=== PATIENT | male | born 1995 | race Caucasian/White ===

== ENCOUNTER 2016-08-28 14:11 | Emergency (ER) | payer SELFPAY ==
[2016-08-28 14:29] VITALS: BP 136/72
--- NOTE | 2016-08-28 18:59 | Emergency Department Report ---
HPI - General Chief Complaint: Sore Throat Time Seen by Provider: 08/28/16 18:35 - HPI HPI: The patient is a 21-year-old male presents for evaluation of palpitations. The patient states that at 1 AM this morning he developed constant severe racing and throbbing quality pain of the chest/heart, lasting for hours, improved with rest. He states that his symptoms began after experiencing the sensation of food being stuck in his throat. He states that this sensation began after eating chicken at approximately midnight. His throat fullness completely resolved upon awakening this a.m., greater than 8 hours prior to my evaluation. The patient denies fever, painful swallowing, difficulty swallowing, difficulty tolerating secretions, stridor, dyspnea, cough, hemoptysis, dizziness , syncope, unilateral leg swelling, calf muscle pain, cocaine or other stimulant use, history of DVT or PE, recent immobilization, congenital heart disease, or family history of sudden cardiac . ED Past Medical Hx - Past Medical History Previous Medical History?: No - Surgical History Past Surgical History?: No - Social History Smoking Status: Current Every Day Smoker Substance Use Type: None ED Review of Systems ROS: Stated complaint: THROAT PAIN Other details as noted in HPI Constitutional: denies: fever ENT: reports throat pain Respiratory: denies: cough, shortness of breath Cardiovascular: reports palpitations Endocrine: denies unexplained weight loss or gain Gastrointestinal: denies: abdominal pain, nausea Genitourinary: denies: dysuria Musculoskeletal: denies: leg swelling Skin: denies: rash Neurological: denies: headache Hematological/Lymphatic: denies: easy bleeding or easy bruising Psych: denies sadness or hopelessness Physical Exam - Physical Exam Vital Signs: Vital Signs 08/28/16 14:24 Temperature 99.1 F Pulse Rate 58 L Respiratory 20 Rate Blood Pressure 136/72 O2 Sat by Pulse 100 Oximetry Physical Exam: General: well-nourished, well-developed, no acute distress Head: Normocephalic, atraumatic Eyes: normal sclera ENT: Mucous membranes are pink and moist, no tonsillar erythema, redness, swelling, no pooling of secretions, no stridor, no neck swelling Neck: trachea midline, neck supple, No neck stiffness, no cervical adenopathy Respiratory: Breath sounds equal bilaterally, no wheezing, rales, or rhonchi Cardio: S1 and S2 present, no murmurs, rubs, gallops, capillary refill is brisk Musc: No pitting edema Skin: No rash Neuro: no facial drooping, normal speech Psych: Normal affect ED Course Vital Signs 08/28/16 14:24 Temperature 99.1 F Pulse Rate 58 L Respiratory 20 Rate Blood Pressure 136/72 O2 Sat by Pulse 100 Oximetry ED Medical Decision Making - Medical Decision Making The patient was seen and examined by myself. There are no findings on examination concerning for esophageal obstruction. EKG is obtained and is negative for T wave inversions, ST elevations or depressions, or findings suggestive of arrhythmias including heart blocks, WPW, HOCM, or supraventricular tachycardias. The patient is reevaluated and reports resolution of symptoms. He states that he is completely symptom an impact normal baseline. The patient is stable for discharge with outpatient follow-up. The patient is given follow-up and return instructions. The patient expressed understanding and agreed with the plan. The patient is discharged in stable condition. Critical care attestation.: If time is entered above; I have spent that time in minutes in the direct care of this critically ill patient, excluding procedure time. ED Disposition Clinical Impression: Palpitations, Chest pain with low risk of acute coronary syndrome, Sore throat Disposition: DISCHARGED TO HOME OR SELFCARE Is pt being admited?: No Does the pt Need Aspirin: No Condition: Stable Instructions: Chest Pain (ED), Palpitations (ED), Esophageal Stricture (ED) Referrals: PRIMARY CARE, [Primary Care Provider] - 3-5 Days Time of Disposition: 18:53
== END 2016-08-28 19:13 | disposition home or self-care (01) ==
LOC: ED 14:11
DX: I24.9 Acute ischemic heart disease, unspecified (principal); R00.2 Palpitations; J02.9 Acute pharyngitis, unspecified; F17.200 Nicotine dependence, unspecified, uncomplicated
CPT/HCPCS: 93005; 93010; 99282

== ENCOUNTER 2017-11-07 14:16 | Inpatient (IN) | payer SELFPAY ==
[2017-11-07 14:49] LABS: Basophils % (Auto) 0.2 % (0.0-1.8); Hematocrit 47.6 % (35.5-45.6); Hemoglobin 16.2 gm/dl (11.8-15.2); Lymphocytes # (Auto) 1.1 K/mm3 (1.2-5.4); Lymphocytes % (Auto) 5.8 % (13.4-35.0); Mean Corpuscular HGB Conc 34 % (32-34); Mean Corpuscular Hemoglobin 29 pg (28-32); Mean Corpuscular Volume 84 fl (84-94); Monocytes # (Auto) 1.2 K/mm3 (0.0-0.8); Monocytes % (Auto) 6.1 % (0.0-7.3); Platelet Count 231 K/mm3 (140-440); Red Blood Count 5.66 M/mm3 (3.65-5.03); Red Cell Distribution Width 12.9 % (13.2-15.2)
[2017-11-07 15:01] LABS: Alanine Aminotransferase 11 units/L (7-56); Albumin 4.8 g/dL (3.9-5); BUN/Creatinine Ratio 28; Blood Urea Nitrogen 22 mg/dL (9-20); Calcium 9.7 mg/dL (8.4-10.2); Hemolysis Index 11
[2017-11-07 15:25] LABS: Bilirubin,Urine NEG (Negative); Blood,Urine NEG (Negative); Color,Urine Amber (Yellow); Mucus,Urine 3+ /HPF
[2017-11-07] MEDS ORDERED: ZOFRAN IV ONE (16:29)
[2017-11-07] MEDS ORDERED: TORADOL IV ONE (16:29)
[2017-11-07] MEDS ORDERED: NACL ONE (16:55)
--- NOTE | 2017-11-07 17:04 | Emergency Department Report ---
Blank Doc - Documentation Documentation: Patient is a trauma 2-year-old male who presents with not being able to have a bowel movement for the last 2 days. Patient also states he's been vomiting and having abdominal pain. Patient has elevated white count I will order a CT scan of his abdomen.
--- NOTE | 2017-11-07 17:58 | Cat Scan Report ---
FINAL REPORT EXAM: CT ABDOMEN PELVIS W CON HISTORY: abdominal pain TECHNIQUE: CT examination of the ABDOMEN after IV contrast CT examination of the PELVIS after IV contrast PRIORS: None. FINDINGS: Normal-appearing liver, gallbladder, adrenals, pancreas, and spleen. Intact normal caliber abdominal aorta and IVC. Normal-appearing kidneys and ureters. Intact abdominal wall. No retroperitoneal adenopathy. No mesenteric mass. Normal-appearing stomach and duodenum. No small bowel distention in the abdomen and pelvis. Nonspecific slight free fluid in the pelvic cul-de-sac. This may be reactive. Nonspecific diffuse slight thickening of the urinary bladder wall may be artifact of decompression. Normal-appearing prostate, seminal vesicles, and rectum. No sigmoid colon abnormality. No gross ascites, free air, or gross colonic distention. Prominent stool and colon caliber from cecum to sigmoid is suggestive of moderate constipation. In the right anterior pelvis, the appendix appears enlarged with diameter of 11 mm. Slight prominence of appendix endoluminal fluid. Diffuse appendiceal wall thickening. Slight fat stranding and trace free fluid adjacent to the appendix. No free air to suggest perforation. No evidence of periappendiceal abscess IMPRESSION: Appendix findings suggest acute appendicitis. Slight pelvic free fluid may be reactive Nonspecific urinary bladder wall thickening may be artifact of decompression. Consider also cystitis Prominent stool and colon caliber from cecum to sigmoid is suggestive of moderate constipation 10/30/2017 at 5:49 p.m. EST: I discussed the findings over the phone with OBDULIO Figueroa. He reports the patient has pain primarily in the pelvis and the white count is elevated
--- NOTE | 2017-11-07 18:06 | Emergency Department Report ---
ED General Adult HPI - General Chief complaint: Abdominal Pain Stated complaint: ABDOMINAL PAIN Time Seen by Provider: 11/07/17 18:02 Source: patient Mode of arrival: Ambulatory Limitations: No Limitations - History of Present Illness Initial comments: Patient is a 22-year-old male no significant past medical history who presents with abdominal pain nausea and vomiting. Patient's symptoms have been going on for the last couple days. He states that he is not able to have a bowel movement and one this abdominal pain started he had nausea and vomiting. He states the abdominal pain as a 6 out of 10. He has not been able to pass gas the last 2 days. He says the pains in his right lower quadrant nothing makes it better or worse. Severity scale (0 -10): 7 - Related Data Allergies Allergy/AdvReac Type Severity Reaction Status Date / Time No Known Allergies Allergy Unverified 08/28/16 14:29 ED Review of Systems ROS: Stated complaint: ABDOMINAL PAIN Other details as noted in HPI Constitutional: denies: chills, fever Eyes: denies: eye pain, eye discharge, vision change ENT: denies: ear pain, throat pain Respiratory: denies: cough, shortness of breath, wheezing Cardiovascular: denies: chest pain, palpitations Endocrine: no symptoms reported Gastrointestinal: abdominal pain, nausea, vomiting. denies: diarrhea Genitourinary: denies: urgency, dysuria Musculoskeletal: denies: back pain, joint swelling, arthralgia Skin: denies: rash, lesions Neurological: denies: headache, weakness, paresthesias Psychiatric: denies: anxiety, depression Hematological/Lymphatic: denies: easy bleeding, easy bruising ED Past Medical Hx - Past Medical History Previous Medical History?: No - Surgical History Past Surgical History?: No - Social History Smoking Status: Current Some Day Smoker Substance Use Type: Alcohol, Marijuana ED Physical Exam - General Limitations: No Limitations General appearance: alert, in no apparent distress - Head Head exam: Present: atraumatic, normocephalic - Eye Eye exam: Present: normal appearance - ENT ENT exam: Present: mucous membranes moist - Neck Neck exam: Present: normal inspection - Respiratory Respiratory exam: Present: normal lung sounds bilaterally. Absent: respiratory distress - Cardiovascular Cardiovascular Exam: Present: regular rate, normal rhythm. Absent: systolic murmur, diastolic murmur, rubs, gallop - GI/Abdominal GI/Abdominal exam: Present: soft, tenderness - Rectal Rectal exam: Present: deferred - Extremities Exam Extremities exam: Present: normal inspection - Back Exam Back exam: Present: normal inspection - Neurological Exam Neurological exam: Present: alert, oriented X3 - Psychiatric Psychiatric exam: Present: normal affect, normal mood - Skin Skin exam: Present: warm, dry, intact, normal color. Absent: rash ED Course Vital Signs 11/07/17 14:19 Temperature 98.4 F Pulse Rate 46 L Respiratory 18 Rate Blood Pressure 139/84 O2 Sat by Pulse 100 Oximetry - Consultations Consultation #1: 11/07/17 18:[address] Waite He States That Patient Can Be Placed on IV Ancef and Flagyl and He Will See the Patient Tomorrow Morning. Patient Is to Be Nothing by Mouth ED Medical Decision Making - Lab Data Result diagrams: 11/07/17 14:32 11/07/17 14:32 Lab Results 11/07/17 11/07/17 11/07/17 Range/Units 14:32 14:32 14:34 WBC 19.1 H (4.5-11.0) K/mm3 RBC 5.66 H (3.65-5.03) M/mm3 Hgb 16.2 H (11.8-15.2) gm/dl Hct 47.6 H (35.5-45.6) % MCV 84 (84-94) fl MCH 29 (28-32) pg MCHC 34 (32-34) % RDW 12.9 L (13.2-15.2) % Plt Count 231 (140-440) K/mm3 Lymph % (Auto) 5.8 L (13.4-35.0) % [place] % (Auto) 6.1 (0.0-7.3) % Eos % (Auto) 0.0 (0.0-4.3) % Baso % (Auto) 0.2 (0.0-1.8) % Lymph # 1.1 L (1.2-5.4) K/mm3 Charlton # 1.2 H (0.0-0.8) K/mm3 Eos # 0.0 (0.0-0.4) K/mm3 Baso # 0.0 (0.0-0.1) K/mm3 Seg Neutrophils % 87.9 H (40.0-70.0) % Seg Neutrophils # 16.8 H (1.8-7.7) K/mm3 Sodium 138 (137-145) mmol/L Potassium 3.8 (3.6-5.0) mmol/L Chloride 94.8 L (98-107) mmol/L Carbon Dioxide 26 (22-30) mmol/L Anion Gap 21 mmol/L BUN 22 H (9-20) mg/dL Creatinine 0.8 (0.8-1.5) mg/dL Estimated GFR > 60 ml/min BUN/Creatinine Ratio 28 % Glucose 119 H (75-100) mg/dL Calcium 9.7 (8.4-10.2) mg/dL Total Bilirubin 1.20 (0.1-1.2) mg/dL AST 16 (5-40) units/L ALT 11 (7-56) units/L Alkaline Phosphatase 93 (35-129) units/L Total Protein 8.0 (6.3-8.2) g/dL Albumin 4.8 (3.9-5) g/dL Albumin/Globulin Ratio 1.5 % Urine Color Grace (Yellow) Urine Turbidity Clear (Clear) Urine pH 5.0 (5.0-7.0) Ur Specific [place] 1.041 H (1.003-1.030) Urine Protein 100 mg/dl (Negative) mg/dL Urine Glucose (UA) Neg (Negative) mg/dL Urine Ketones 80 (Negative) mg/dL Urine Blood Neg (Negative) Urine Nitrite Neg (Negative) Urine Bilirubin Neg (Negative) Urine Urobilinogen 2.0 (<2.0) mg/dL Ur Leukocyte Esterase Neg (Negative) Urine WBC (Auto) 3.0 (0.0-6.0) /HPF Urine RBC (Auto) 1.0 (0.0-6.0) /HPF U Epithel Cells (Auto) < 1.0 (0-13.0) /HPF Urine Mucus 3+ /HPF - Radiology Data Radiology results: report reviewed, image reviewed CT scan of abdomen: Shows findings of acute appendicitis. - Medical Decision Making Cdx: Appendicitis ddx: Pancreatitis, Gastritis I will get ct scan with contrast, cbc. cmp IV pain medication, anti-emetic medication and I will re-evaluate patient. Patient will be admitted to Dr. Rivas 's service. Discussed plan with hospitalist. [facility]. Critical Care Time: Yes Critical care time in (mins) excluding proc time.: 30 Critical care attestation.: If time is entered above; I have spent that time in minutes in the direct care of this critically ill patient, excluding procedure time. Critical care time spent at patient's bedside 20 minutes Critical care time spent with consultants 5 minutes Critical care time spent reviewing imaging and laboratory findings 5 minutes ED Disposition Clinical Impression: Appendicitis Qualifiers: Appendicitis type: acute appendicitis Acute appendicitis type: unspecified acute appendicitis type Qualified Code(s): K35.80 - Unspecified acute appendicitis Leukocytosis Qualifiers: Leukocytosis type: unspecified Qualified Code(s): D72.829 - Elevated white blood cell count, unspecified Nausea and vomiting Qualifiers: Vomiting type: unspecified Vomiting Intractability: non-intractable Qualified Code(s): R11.2 - Nausea with vomiting, unspecified Disposition: OP ADMIT IP TO THIS HOSP Is pt being admited?: Yes Does the pt Need Aspirin: No Condition: Stable Referrals: PRIMARY CARE, [Primary Care Provider] - 3-5 Days
[2017-11-07] MEDS ORDERED: ceFAZolin 1 GM in NACL 0.9% 20 ML IV SCH (19:15)
[2017-11-07] MEDS ORDERED: MORPHINE IV PRN (21:18)
--- NOTE | 2017-11-07 21:20 | Event Note ---
Date: 11/07/17 Patient was evaluated by Dr. Rivas Internal medicine doctor. He states that patient has no medical problems. He is young and should not be admitted to the medicine service. I will admit patient to Dr. Waite's service.
[2017-11-07] MEDS ORDERED: D5W/0.45% NACL/KCL 40 MEQ 40 MEQ/1,000 ML BAG IV SCH ×2 (22:00)
[2017-11-07] MEDS ORDERED: D5W/0.45% NACL/KCL 20 MEQ 20 MEQ/1,000 ML BAG IV SCH (22:00)
[2017-11-08] MEDS: FLAGYL 500 MG/100 ML 500 MG/100 ML BAG IV SCH (00:04)
[2017-11-08] MEDS ORDERED: DILAUDID IV PRN (11:55)
--- NOTE | 2017-11-08 11:55 | Anesthesia Day of Surgery ---
Anesthesia Day of Surgery - Day of Surgery Patient Examined: Yes Patient H&P Reviewed: Yes Patient is NPO: Yes
--- NOTE | 2017-11-08 11:55 | Anesthesia Consultation ---
Anesthesia Consult and Med Hx Date of service: 11/08/17 - Airway Anesthetic Teeth Evaluation: Good ROM Head & Neck: Adequate Mental/Hyoid Distance: Adequate Mallampati Class: Class I Intubation Access Assessment: Good - Pulmonary Exam CTA: Yes - Cardiac Exam Cardiac Exam: RRR - Pre-Operative Health Status ASA Pre-Surgery Classification: ASA2 Proposed Anesthetic Plan: General - Pulmonary Hx Smoking: Yes Hx Asthma: No COPD: No Hx Pneumonia: No - Central Nervous System CVA: No - Endocrine Hx End Stage Renal Disease: No - Other Systems Hx Cancer: No - Additional Comments Anesthesia Medical History Comments: acute appendicitis
[2017-11-08] MEDS ORDERED: ZOFRAN IV PRN (12:29)
[2017-11-08] MEDS ORDERED: DEMEROL IV PRN (12:29)
[2017-11-08] MEDS ORDERED: SUBLIMAZE ONE (12:30)
[2017-11-08] MEDS ORDERED: DIPRIVAN 10 MG/ML IV ONE ×2 (12:35→14:20)
[2017-11-08] MEDS ORDERED: MARCAINE 0.5% 30 ML INFILTRATI ONE (12:42)
[2017-11-08] MEDS ORDERED: FLAGYL 500 MG/100 ML 500 MG/100 ML BAG IV NR (13:00)
[2017-11-08] MEDS ORDERED: VERSED IV NR (13:00)
[2017-11-08] MEDS ORDERED: ceFAZolin 1 GM in NACL 0.9% 20 ML IV SCH (13:00)
[2017-11-08] MEDS ORDERED: NACL 0.9% IR ONE (13:26)
[2017-11-08] MEDS ORDERED: ANCEF ONE (13:27)
[2017-11-08] MEDS ORDERED: MARCAINE 0.5% INFILTRATI ONE (13:27)
[2017-11-08] MEDS ORDERED: QUELICIN ONE (13:28)
[2017-11-08] MEDS ORDERED: ZEMURON IV ONE (13:28)
[2017-11-08] MEDS ORDERED: XYLOCAINE CARDIAC IV ONE (13:28)
[2017-11-08] MEDS ORDERED: DILAUDID ONE (13:50)
[2017-11-08] MEDS ORDERED: NEOSTIGMINE ONE (14:17)
[2017-11-08] MEDS ORDERED: ROBINUL ONE (14:17)
[2017-11-08] MEDS ORDERED: NACL 0.9% 1000 ML IR ONE (14:47)
[2017-11-08] MEDS: LACTATED RINGERS 1,000 ML IV SCH (17:07)
[2017-11-09] MEDS: LACTATED RINGERS 1,000 ML IV SCH (00:20)
[2017-11-09 07:29] LABS: Creatine Kinase MB < 1.0 ng/mL (0.0-4.0)
--- NOTE | 2017-11-09 12:31 | Consultation ---
History of Present Illness Consult date: 11/09/17 Consult reason: bradycardia History of present illness: 22 year old s/p laparoscopic cholecystectomy developed bradycardia overnight. 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 He denies chest pain, SOB, syncope, lightheadedness or dizziness. ECG is showing early repolarization and sinus bradycardia. Patient is asymptomatic and ready to go home. Past History Past Medical History: No medical history Past Surgical History: appendectomy Social history: no significant social history Family history: no significant family history Medications and Allergies Allergies Allergy/AdvReac Type Severity Reaction Status Date / Time No Known Allergies Allergy Unverified 08/28/16 14:29 Active Meds: Active Medications Hydromorphone HCl (Dilaudid) 0.5 mg IV Q10MIN PRN PRN Reason: Pain , Severe (7-10) Metronidazole (Flagyl 500 Mg/100 Ml) 500 mg in 100 mls @ 200 mls/hr IV ONCE SANDI Last Infusion: 11/08/17 03:45 Dose: Infused Potassium Chloride/Dextrose/Sod Cl (D5w/0.45% Nacl/Kcl 40 Meq) 40 meq in 1,000 mls @ 125 mls/hr IV DIRECT SANDI Last Admin: 11/08/17 00:27 Dose: 125 mls/hr Lactated Ringer's (Lactated Ringers) 1,000 mls @ 150 mls/hr IV DIRECT SANDI Last Admin: 11/09/17 00:20 Dose: 150 mls/hr Meperidine HCl (Demerol) 25 mg IV ONCE PRN PRN Reason: Shivering Morphine Sulfate (Morphine) 3 mg IV Q4H PRN PRN Reason: Pain, Moderate (4-6) Last Admin: 11/08/17 00:04 Dose: 3 mg Review of Systems All systems: negative Physical Examination Vital Signs Temp Pulse Resp BP Pulse Ox 98.4 F 46 L 18 139/84 100 11/07/17 14:19 11/07/17 14:19 11/07/17 14:19 11/07/17 14:19 11/07/17 14:19 General appearance: no acute distress Neck: Positive: neck supple Cardiac: Positive: Reg Rate and Rhythm Lungs: Positive: Normal Exam Neuro: Positive: Grossly Intact Abdomen: Positive: Soft Extremities: Present: normal Results 11/07/17 14:32 03/28/18 14:32 Cardiac Enzymes 11/09/17 Range/Units 06:36 CK-MB (CK-2) < 1.0 (0.0-4.0) ng/mL EKG interpretations - Telemetry EKG Rhythm: Sinus Rhythm Assessment and Plan Asymptomatic Bradycardia Early repolarization on ECG s/p laparoscopic cholecystectomy Recommendations: No further cardiac work-up is needed Patient may go home cardiac daniels
[2017-11-09] MEDS: FLAGYL 500 MG/100 ML 500 MG/100 ML BAG IV SCH (12:32)
--- NOTE | 2017-11-09 13:30 | Progress Note ---
Subjective Patient Reports: Positive: feels better Narrative: doing fine abd soft may go home . Pt to advance feeding , to see me in 10 days may take extra strength tylenol to call PRN . no driving X 3 days / Objective Vital Signs - 12hr 11/09/17 11/09/17 11/09/17 04:50 07:38 07:39 Temperature 98.9 F 98.6 F Pulse Rate 51 L 52 L 69 Respiratory 17 19 Rate Blood Pressure 114/62 117/66 O2 Sat by Pulse 98 98 99 Oximetry - Labs 11/07/17 14:32 11/07/17 14:32
[2017-11-09 14:03] VITALS: BP 120/57
--- NOTE | 2017-11-09 16:03 | Operative Report ---
PREOPERATIVE DIAGNOSIS: Acute appendicitis. POSTOPERATIVE DIAGNOSIS: Acute appendicitis. SURGERY: Laparoscopic appendectomy. ANESTHESIA: General. BLOOD LOSS: Minimal. FINDINGS: The patient has had an acutely inflamed appendix. There is no perforation. There is no abscess formation. DESCRIPTION OF PROCEDURE: With the patient in supine position, he was prepped and draped in the usual fashion. I made a small incision in the infraumbilical area deep subcutaneous tissue between 2 stay sutures of 0 Vicryl. I was able to introduce the #10 ____. Then, with the use of camera #10, I was able to see the abdomen. The appendix was seen. So, I had to put 2 more trocars, one in the midline inferiorly and one in the left lower quadrant area. I got hold the gallbladder with the use of a grasper and at its base, I was able to isolate it easily. This was transected using the Endo-BELEM. We had good hemostasis and then the appendix was removed via the EndoCatch. While I was satisfied, the area was then irrigated with sterile normal saline and thus all the trocars were removed one by one, ascertained no bleeding from the insertion sites. At that point, the fascia was closed with #1 Vicryl x 2 and the skin 4-0 Vicryl and bandage. The patient was then transferred to the recovery in good condition. JOB# [id number] ELEANOR/RUPINDER
--- NOTE | 2017-11-09 21:49 | Discharge Summary ---
FINAL DIAGNOSIS: Acute appendicitis. HOSPITAL COURSE: This man was seen in the ER the day prior to his admission where he had severe pain to right lower quadrant with nausea. He vomited on one occasion. He was taken to the operating room the first hospital day where he underwent laparoscopic appendectomy. He did well. Postop, he had some bradycardia for which Dr. Villanueva seen him who cleared him to go home. Today, I saw him, is doing fine. I believe he may go home to see me in my office in 10 days. To take Extra Strength Tylenol for pain. JOB# [id number] ELEANOR/RUPINDER
== END 2017-11-09 16:00 | disposition home or self-care (01) | DRG 343 ==
LOC: ED 14:16 → 3B-SURG 18:41
PROVIDERS: ADMIT Internal Medicine; ATTEND Surgery
PROC: 0DTJ4ZZ Resection of Appendix, Percutaneous Endoscopic Approach (ICD-10-PCS; principal; 2017-11-09)
DX: K35.80 Unspecified acute appendicitis (principal); Z87.891 Personal history of nicotine dependence
CPT/HCPCS: 36415; 74177; 80053; 81001; 82550; 82553; 84484; 85025; 88304; 93005; 93010; 96374; 96375; J0330; J0690; J1170; J1885; J2001; J2175; J2270; J2405; J2704; J2710; J3010; J7030; J7120; Q9967